=== PATIENT | male | born 1985 | race Caucasian/White ===

== ENCOUNTER 2016-03-18 | Emergency (ER) | payer BC, OTHER ==
[~2016-03-18] VITALS: Ht 180.3 cm; Wt 84.1 kg
[2016-03-18 00:05] VITALS: Ht 180.3 cm; Wt 84.1 kg
[2016-03-18 01:20] LABS: BASOPHILS % 0.4 % (0.0-2.0); EOSINOPHILS # 0.1 10^3/ul (0.0-0.5); EOSINOPHILS % 1.5 % (0.0-7.0); HEMATOCRIT 48.7 % (42.0-52.0); HEMOGLOBIN 16.2 g/dl (14.0-18.0); LYMPHOCYTES # 2.1 10^3/ul (0.8-2.9); LYMPHOCYTES % 21.7 % (15.0-51.0); MEAN CORPUSCULAR HEMOGLOBIN 28.7 pg (29.0-33.0); MEAN CORPUSCULAR HGB CONC 33.3 g/dl (32.0-37.0); MEAN CORPUSCULAR VOLUME 86.1 fl (82.0-101.0); MEAN PLATELET VOLUME 6.7 fl (7.4-10.4); MONOCYTE # 1.1 10^3/ul (0.3-0.9); MONOCYTES % 11.2 % (0.0-11.0); NEUTROPHIL # 6.3 10^3/ul (1.6-7.5); NEUTROPHILS % 65.2 % (39.0-77.0); PLATELET COUNT 309 10^3/UL (140-440); RED BLOOD COUNT 5.66 10^6/ul (4.70-6.10); RED CELL DISTRIBUTION WIDTH 13.6 % (11.5-14.5); UNCORRECTED WBC 9.7 10^3/ul (4.8-10.8); WHITE BLOOD COUNT 9.7 10^3/ul (4.8-10.8)
[2016-03-18 01:21] LABS: CONDITION 1
[2016-03-18 01:54] LABS: ALBUMIN 4.8 g/dl (3.3-4.9)
[2016-03-18 01:55] LABS: CHLORIDE 98 mmol/L (97-110); POTASSIUM 4.1 mmol/L (3.5-5.1); SODIUM 141 mmol/L (135-144)
[2016-03-18 01:57] LABS: ALBUMIN/GLOBULIN RATIO 1.37; ALKALINE PHOSPHATASE 82 IU/L (42-121); ANION GAP 19 (8-16); ASPARTATE AMINO TRANSFERASE 22 IU/L (15-46); BILIRUBIN,INDIRECT 0.5 mg/dl (0-1.1); BILIRUBIN,TOTAL 0.5 mg/dl (0.2-1.3); BLOOD UREA NITROGEN 16 mg/dl (7-20); CARBON DIOXIDE 28 mmol/L (21-31); CREATININE 1.62 mg/dl (0.61-1.24); TOTAL PROTEIN 8.3 g/dl (6.1-8.1)
[2016-03-18 01:58] LABS: ALANINE AMINOTRANSFERASE 25 IU/L (13-69); CALCIUM 9.3 mg/dl (8.4-10.2); GLUCOSE 113 mg/dl (70-220)
[2016-03-18 02:02] LABS: ACETAMINOPHEN < 10.0 ug/ml (10.0-30.0); ETHANOL < 10.0 mg/dl; SALICYLATE < 1.0 mg/dl (5.0-30.0)
--- NOTE | 2016-03-18 02:33 | RADRPT ---
PROCEDURE: Noncontrast CT Head. CLINICAL INDICATION: Pain. TECHNIQUE: Noncontrast CT of the head was obtained. The administered radiation dose was CTDI vol = 44 mGy, DLP = 720 mGy-cm. COMPARISON: No pertinent prior examinations were submitted for comparison. FINDINGS: There is encephalomalacia within the right temporal lobe and left parietal lobe. Previous left juan carlos etal craniotomy is noted. The ventricles and cortical sulci are otherwise appropriate in size and co nfiguration. There is no acute intracranial hemorrhage or extra-axial fluid collection. There is no mass effect. No midline shift is identified. There is no loss of khan-white differentiation to sugge st acute infarction. The orbits are within normal limits. The paranasal sinuses and mastoid air cells are without fluid. No destructive osseous lesion is identified. IMPRESSION: No acute findings. Encephalomalacia in the right temporal and left parietal lobes likely due to remote trauma. RPTAT: HIKT .Raciel Galvin MD, MD Date Time Electronically viewed and signed by .Raciel Galvin MD, MD on 03/18/2016 02:32 .T/
--- NOTE | 2016-03-18 05:08 | ERA ---
ER Documentation Chief Complaint Date/Time DATE: 03/18/16 TIME: 05:03 Chief Complaint ALOC,used marijuana oil per EMS report HPI Patient is a 30-year-old male who presents altered. Please note the history and physical exam is limited secondary to the patient's ability to give a history. The patient was brought in by ambulance. The police were involved as well because he was banging his head on random cars. He is not under arrest. He told the paramedics that he used "wax" but he told me that he did not use any illicit drugs. The patient is confused. Upon review of old medical records this is the patient's first visit to the ER. Review of the emergency department information exchange is negative for other visits to other emergency departments. ROS All systems reviewed and are negative except as per history of present illness. Allergies Allergies: Coded Allergies: No Known Allergy (Unverified , 03/18/16) PMhx/Soc History of Surgery: No Anesthesia Reaction: No Hx Neurological Disorder: No Hx Respiratory Disorders: No Hx Cardiac Disorders: No Hx Psychiatric Problems: Yes (substance use) Hx Miscellaneous Medical Probl: No Hx Alcohol Use: Yes (occasionally) Hx Substance Use: Yes (marijuana oil last used today) Hx Tobacco Use: Yes Smoking Status: Current every day smoker FmHx Family History: No diabetes Physical Exam Vitals Vital Signs Date Time Temp Pulse Resp B/P Pulse Ox O2 Delivery O2 Flow Rate FiO2 03/18/16 01:00 96.9 87 18 125/83 95 Room Air 03/18/16 00:05 96.9 89 18 130/87 92 Physical Exam Const: Confused Head: Atraumatic Eyes: Normal Conjunctiva ENT: Normal External Ears, Nose and Mouth. Neck: Full range of motion..~ No meningismus. Resp: Clear to auscultation bilaterally Cardio: Regular rate and rhythm, no murmurs Abd: Soft, non tender, non distended. Normal bowel sounds Skin: No petechiae or rashes Back: No midline or flank tenderness Ext: No cyanosis, or edema Neur: Awake but confused, unable to answer questions well Result Diagram: 03/18/16 0050 03/18/16 0050 Results 24 hrs Laboratory Tests Test 03/18/16 00:50 Acetaminophen Level < 10.0ug/ml Alanine Aminotransferase (ALT/SGPT) 25IU/L Albumin 4.8g/dl Albumin/Globulin Ratio 1.37 Alkaline Phosphatase 82IU/L Anion Gap 19 Aspartate Amino Transf (AST/SGOT) 22IU/L Basophils # 0.010^3/ul Basophils % 0.4% Blood Morphology Comment Blood Urea Nitrogen 16mg/dl Calcium Level 9.3mg/dl Carbon Dioxide Level 28mmol/L Chloride Level 98mmol/L Creatinine 1.62mg/dl Direct Bilirubin 0.00mg/dl Eosinophils # 0.110^3/ul Eosinophils % 1.5% Ethyl Alcohol Level < 10.0mg/dl Globulin 3.50g/dl Glucose Level 113mg/dl Hematocrit 48.7% Hemoglobin 16.2g/dl Indirect Bilirubin 0.5mg/dl Lymphocytes # 2.110^3/ul Lymphocytes % 21.7% Mean Corpuscular Hemoglobin 28.7pg Mean Corpuscular Hemoglobin Concent 33.3g/dl Mean Corpuscular Volume 86.1fl Mean Platelet Volume 6.7fl Monocytes # 1.110^3/ul Monocytes % 11.2% Neutrophils # 6.310^3/ul Neutrophils % 65.2% Nucleated Red Blood Cells # 0.010^3/ul Nucleated Red Blood Cells % 0.0/100WBC Platelet Count 80244^3/UL Potassium Level 4.1mmol/L Red Blood Count 5.6610^6/ul Red Cell Distribution Width 13.6% Salicylates Level < 1.0mg/dl Sodium Level 141mmol/L Total Bilirubin 0.5mg/dl Total Protein 8.3g/dl White Blood Count 9.710^3/ul Procedures/MDM Smoking Cessation Therapy: Pt. was lectured for greater than 3 minutes on the health risks of continued smoking and the benefits of cessation. CT scan of the brain shows old trauma but no acute abnormality per radiology. Patient is a 30-year-old male who presents confused. His laboratory studies show a slightly elevated creatinine but are otherwise normal. Aspirin, Tylenol , and alcohol levels are negative. We are still trying to get a urine drug screen from him. However the patient has been observed now for over 4 hours and is still at the same level of consciousness as when he came in. CT scan of the brain did not show any signs of intracranial hemorrhage or acute abnormalities. Therefore I believe the patient is gravely disabled at this time because he is significantly confused and I do not feel that he can be discharged safely. I believe at this point he will require psychiatric treatment for grave disability. Observation Note: Time: 4 hours Family Hx: Negative for diabetes Evaluation: Multiple exams showed improving symptoms and no evidence of clinical decompensation. Departure Diagnosis: Primary Impression: Grave disability Additional Impression: Altered level of consciousness Condition: DARI Hartley MD Mar 18, 2016 05:07
--- NOTE | 2016-03-18 07:14 | PSY ---
Date/Time of Note Date/Time of Note DATE: 03/18/16 TIME: 07:06 Psychiatric Subjective Eval Consent Pt consented to telemedicine: Yes Subjective Evaluation Patient location: emergency Chief Complaint: ALOC,used marijuana oil per EMS report History of present illness 30/m, who was brought in by the police because he was banging his head on the cars. he was doing " some drugs" He is a poor historian. he is agitated , wants to go home " My mother brought me here, I want to go home" Past psychiatric history He stated that he takes Seroquel . Has psych admissions before. Hospitalization: yes Medical history Problems Medical Problems: (1) Altered level of consciousness Status: Acute (2) Grave disability Status: Acute Allergies: Coded Allergies: No Known Allergy (Unverified , 03/18/16) Substance Abuse Substance abuse history: Yes Social History Marital status: single Psychiatric Objective Eval Review of Systems: Review of Systems: Not Applicable Physical Examination: Energy: Increased Mental Status Examination: Appearance: Disheveled Eye Contact: Good Psychomotor Activity: Agitated Behavior: Agitated Speech: Pressured, Disorganized AFFECT: Libile Mood: Anxious, Irritable, Elevated Though Process: Loose Thought Content: Delusions Suicidal: No Homicidal: No On 72 hour hold: Yes Orientation: x3 Cognition: Alert Insight: Impared (6) Judgement: Impared Attention Span: Distractible Laboratory Results Laboratory Tests Test 03/18/16 00:50 Acetaminophen Level < 10.0ug/ml Alanine Aminotransferase (ALT/SGPT) 25IU/L Albumin 4.8g/dl Albumin/Globulin Ratio 1.37 Alkaline Phosphatase 82IU/L Anion Gap 19 Aspartate Amino Transf (AST/SGOT) 22IU/L Basophils # 0.010^3/ul Basophils % 0.4% Blood Morphology Comment Blood Urea Nitrogen 16mg/dl Calcium Level 9.3mg/dl Carbon Dioxide Level 28mmol/L Chloride Level 98mmol/L Creatinine 1.62mg/dl Direct Bilirubin 0.00mg/dl Eosinophils # 0.110^3/ul Eosinophils % 1.5% Ethyl Alcohol Level < 10.0mg/dl Globulin 3.50g/dl Glucose Level 113mg/dl Hematocrit 48.7% Hemoglobin 16.2g/dl Indirect Bilirubin 0.5mg/dl Lymphocytes # 2.110^3/ul Lymphocytes % 21.7% Mean Corpuscular Hemoglobin 28.7pg Mean Corpuscular Hemoglobin Concent 33.3g/dl Mean Corpuscular Volume 86.1fl Mean Platelet Volume 6.7fl Monocytes # 1.110^3/ul Monocytes % 11.2% Neutrophils # 6.310^3/ul Neutrophils % 65.2% Nucleated Red Blood Cells # 0.010^3/ul Nucleated Red Blood Cells % 0.0/100WBC Platelet Count 63226^3/UL Potassium Level 4.1mmol/L Red Blood Count 5.6610^6/ul Red Cell Distribution Width 13.6% Salicylates Level < 1.0mg/dl Sodium Level 141mmol/L Total Bilirubin 0.5mg/dl Total Protein 8.3g/dl White Blood Count 9.710^3/ul Assessment and Plan Assessment/Diagnosis [place] I: Schizophrenia paranoid type Polysubstance dependence [place] II: deferred [place] III: none [place] IV: moderate [place] V: 20 Recommendation/Plan Medication Management seroquel 100mg HS, 50mg in AM and at 2 PM Follow-up/Disposition 5150 psychiatric hospitalization. UTOX is pending. 5150 Recommendation: Continue Hold ALIVIA BAKER MD Mar 18, 2016 07:14
[2016-03-18] MEDS ORDERED: ALPRAZOLAM 0.25 MG TAB PO ONE ×2 (09:00→13:30)
[2016-03-18] MEDS ORDERED: QUETIAPINE 25 MG TAB PO SCH ×2 (09:00→14:00)
[2016-03-18] MEDS ORDERED: QUET100T25 PO ×2 (09:16)
[2016-03-18] MEDS ORDERED: ALPR2TAB PO (09:17)
[2016-03-18 15:00] VITALS: TEMP 98
[2016-03-18 17:08] VITALS: BP 140/73; PULSE 92; RESP 16
[2016-03-18 17:09] LABS: ADD UMIC YES; URINE BILIRUBIN (Dip) NEGATIVE (NEGATIVE); URINE BLOOD (Dip) NEGATIVE (NEGATIVE); URINE COLOR YELLOW (YELLOW); URINE GLUCOSE (Dip) NEGATIVE (NEGATIVE); URINE KETONES (Dip) 15 (NEGATIVE); URINE LEUKOCYTE ESTERASE (Dip) NEGATIVE (NEGATIVE); URINE NITRITE (Dip) NEGATIVE (NEGATIVE); URINE TOTAL PROTEIN (Dip) TRACE (NEGATIVE); URINE UROBILINOGEN (Dip) 0.2 E.U./dL (0.1-1.0)
[2016-03-18 17:21] LABS: BACTERIA,URINE FEW; URINE RBCS NONE SEEN /HPF (0)
[2016-03-18 17:22] LABS: MUCUS,URINE MODERATE
[2016-03-18 17:33] LABS: BARBITURATES NEGATIVE (NEGATIVE); COCAINE NEGATIVE (NEGATIVE); OPIATES POSITIVE (NEGATIVE)
[2016-03-18 17:34] LABS: BENZODIAZEPINES POSITIVE (NEGATIVE); CANNABINOIDS POSITIVE (NEGATIVE)
[2016-03-18] MEDS ORDERED: QUETIAPINE 100 MG TAB PO SCH (21:00)
== END 2016-03-18 19:42 ==
LOC: E/R
DX: F79 Unspecified intellectual disabilities (principal); R40.4 Transient alteration of awareness; F17.210 Nicotine dependence, cigarettes, uncomplicated; R40.2142 Coma scale, eyes open, spontaneous, at arrival to emergency department; R40.2252 Coma scale, best verbal response, oriented, at arrival to emergency department; R40.2362 Coma scale, best motor response, obeys commands, at arrival to emergency department
CPT/HCPCS: 70450; 80053; 81001; 85025; G0478; G0479; 36415; 81003